=== PATIENT | female | born 2000 | race Caucasian/White ===

== ENCOUNTER 2019-09-28 17:33 | Outpatient (CLI) | payer BC ==
[~2019-09-28] VITALS: Ht 160 cm; Wt 73.0 kg
--- NOTE | 2019-09-28 17:30 | NUR ---
1725- Pt. ambulatory to the unit alone. Pt. reports GFM, no blood and no ctx. Pt states she is here because she has been leaking/maybe peeing a little all day. Pt. denies recent sex. 1730- EFM and TOCO on and tracing. Assessment completed, vitals taken, plan for the visit discussed. Questions answered. Call light within reach.
[2019-09-28] MEDS ORDERED: DAILY MULTIPLE1 T18 (17:39)
[2019-09-28 18:00] VITALS: BP 129/73; PULSE 77; TEMP 98.9
--- NOTE | 2019-09-28 18:25 | NUR ---
Assisted pt with position change to supine with wedge right and encourage oral hydration.
--- NOTE | 2019-09-28 18:47 | NUR ---
SVE with no change /-3 with no extra fluid noted on exam. Spoke with Dr. Cheney for an update on pt's status. FHR tracing, SVE and occasional contractions reviewed with provider. Orders for discharge home received. Discharge information reviewed with pt and significant other at bedside. Both verbalized an understanding, agreed with the plan and state no questions or concerns at this time.
== END 2019-09-28 19:05 | disposition home or self-care (01) ==
LOC: LDRO 17:33 → LDR 18:02 → LDRO 19:05
DX: O42.92 Full-term premature rupture of membranes, unspecified as to length of time between rupture and onset of labor (principal); Z3A.38 38 weeks gestation of pregnancy; Z86.19 Personal history of other infectious and parasitic diseases
CPT/HCPCS: OP

== ENCOUNTER 2019-10-12 07:54 | Inpatient (IN) | payer BC ==
[~2019-10-12] VITALS: Ht 160 cm; Wt 73.2 kg
[~2019-10-12 07:54] MED LIST: DAILY MULTIPLE1 T18
[2019-10-12 23:30] VITALS: BP 120/69; PULSE 76; TEMP 98.8
[2019-10-13] VITALS (66 sets, daily range): BP systolic 11–146; BP diastolic 49–82; PULSE 60–115; TEMP 98.1–99.1
[2019-10-13 00:08] LABS: BASO % 0.3 % (0.0-2.0); EOS # 0.2 (0.0-0.7); EOS % 1.6 % (0-4.0); GRAN % 64.5 % (42.2-75.2); HEMOGLOBIN 11.1 g/dl (12.5-16.0); LYMPH # 2.2 (1.2-3.4); LYMPH % 20.3 % (20.0-51.0); MEAN CELL VOLUME 85 fl (80.0-100.0); MEAN CORPUSCULAR HEMOGLOBIN 28 pg (27.0-31.0); MEAN CORPUSCULAR HGB CONC 33 g/dl (33.0-37.0); MEAN PLATELET VOLUME 11.5 fl (7.4-10.4); MONO # 1.4 (0.1-0.6); MONO % 12.6 % (1.7-9.3); PLATELET COUNT 225 K/mm3 (130-400); RED BLOOD COUNT 3.92 M/mm3 (4.10-5.30); REDCELL DISTRIBUTION WIDTH-CV 13.8 % (11.5-14.5)
[2019-10-13 00:11] LABS: HEMATOCRIT 33.4 % (37.0-47.0)
[2019-10-13] MEDS ORDERED: BACTROBAN15 GM TOP (00:51)
--- NOTE | 2019-10-13 08:18 | NUR ---
Recurrent late declerations noted. Pt repositioned RL. LR bolus infusing. 0821-Repositioning did not resolve decelerations. Pitocin shut off. Pt repositioned. LL. 0828-Pt repositioned RL. O2 applied via simple mask at 10L. Dr. Blanc at bedside. Orders to continue expectant management of labor with pitocin shut off.
--- NOTE | 2019-10-13 10:20 | NUR ---
N/V present. Difficulty tracing FHR due to maternal emesis. RN at bedside adjusting monitors. 1030-Pt repositioned to BB. FHR tracing.
--- NOTE | 2019-10-13 16:56 | NUR ---
Pt refuses COVID-19 swab
--- NOTE | 2019-10-13 18:10 | NUR ---
1800- Dr. Blanc to bedside for SVE and discussion of labor plan. RN remains at bedside. 1801- SVE . Discussion of for FHT and head not decending discussed and agreed upon. Provider discussed plan and answered all questions. Pt prepped for surgery prior to shift change in precaution by Otilio Velásquez RN and reported during shift change.
[2019-10-14 03:45] VITALS: BP 106/59; PULSE 93
[2019-10-14 07:45] VITALS: BP 100/61; PULSE 74; TEMP 97.8
[2019-10-14] MEDS ORDERED: IBU800 M1 PO ×2 (09:42)
[2019-10-14] MEDS ORDERED: PERCOCET 325 MG1 TA2 PO (09:43)
--- NOTE | 2019-10-14 10:03 | NUR ---
Initial visit attempt; Nurse with patient. Labeler left card of congratulations for the of their son and information regarding the availability of spiritual care at [place].
[2019-10-14 11:45] VITALS: BP 92/53; PULSE 68; TEMP 97.9
[2019-10-14 16:10] VITALS: BP 90/53; PULSE 77; TEMP 97.9
[2019-10-14 20:05] VITALS: BP 95/54; PULSE 79; TEMP 97.5
[2019-10-15 07:05] VITALS: BP 100/52; PULSE 77; TEMP 98.4
[2019-10-15] MEDS ORDERED: IBU800 M1 PO (09:10)
[2019-10-15 16:00] VITALS: BP 108/61; PULSE 84; TEMP 99.5
[2019-10-15 19:13] VITALS: BP 107/54; PULSE 77; TEMP 98.4
[2019-10-16 08:25] VITALS: BP 101/61; PULSE 77; TEMP 98.2
== END 2019-10-16 10:40 | disposition home or self-care (01) | DRG 788 ==
LOC: LDR 07:54 → OB 10-13 20:00
PROVIDERS: ADMIT Student in an Organized Health Care Education/Training Program
PROC: 10D00Z1 Extraction of Products of Conception, Low, Open Approach (ICD-10-PCS; principal; 2019-10-13)
DX: O62.0 Primary inadequate contractions (principal); O99.824 Streptococcus B carrier state complicating childbirth; O69.81X0 Labor and delivery complicated by cord around neck, without compression, not applicable or unspecified; Z3A.40 40 weeks gestation of pregnancy; Z37.0 Single live birth
CPT/HCPCS: J0690; J1885; J2370; J2400; J2405; J2540; J2590; J2795; J7120